=== PATIENT | male | born 1935 | race Caucasian/White ===

== ENCOUNTER 2017-03-29 07:46 | Day surgery (SDC) | payer BC, OTHER ==
[2017-03-28 10:45] VITALS: BMI 19.6
[2017-03-29 08:16] LABS: MCH 31.8 pg (25.7-33.7); MEAN CELL VOLUME 96.3 fl (80-96); MEAN PLT VOLUME 10.5 fl (7.5-11.1); NEUTROPHILS 39.6 % (42.8-82.8); PLATELET COUNT 133 K/MM3 (134-434); RDW 13.8 % (11.9-15.9); WHITE BLOOD COUNT 5.3 K/mm3 (4.0-10.0)
[2017-03-29 08:30] VITALS: TEMP 97.4
[2017-03-29 08:45] LABS: INR 1.08 (0.82-1.09); PROTHROMBIN TIME (PATIENT) 11.9 SEC (9.98-11.88)
[2017-03-29 15:36] VITALS: BP 125/62; PULSE 58
--- NOTE | 2017-03-30 15:41 | PATH ---
Surgical Pathology Report Patient Name: LAUREN PIERCE [facility]. Rec. #: [id number] /Age/Gender: 1935 (Age: 81) / M Account: [id number] Location: RADIOLOGY Taken: 03/29/2017 Received: 03/29/2017 Reported: 03/30/2017 Physicians: Drake Pike M.D. Salena Jorge M.D. Specimen(s) Received LIVER BIOPSY Clinical History 81-year-old male with chronic hepatitis C and large right hepatic lobe mass Final Diagnosis LIVER, US GUIDED CORE BIOPSY: HEPATOCELLULAR CARCINOMA, WELL DIFFERENTIATED (SEE COMMENT). Comment: The tumor is comprised of polygonal cells with round slightly hyperchromatic nuclei and eosinophilic cytoplasm closely resembling hepatocytes, forming cords and gland-like structures focally containing bile, with interspersed fibrotic bands with mixed inflammatory cells. Reticulin stain shows thickened hepatocellular plates. The findings are consistent with well-differentiated hepatocellular carcinoma. The case was discussed with Dr. Pascual on 03/30/17. Electronically Signed Percy Panchal M.D. Gross Description Received in formalin labeled "liver tissue," are 5 dos santos, cylindrical portions of soft tissue ranging from 0.2-1.7 cm in length and averaging 0.1 cm in diameter. The specimens are submitted in toto in one cassette. 03/29/201703/29/2017
== END 2017-03-29 15:36 | disposition home or self-care (01) ==
LOC: JRADIR 07:46
PROVIDERS: ATTEND Internal Medicine Hematology & Oncology
PROC: 0FB03ZX Excision of Liver, Percutaneous Approach, Diagnostic (ICD-10-PCS; principal; 2017-03-29)
DX: C22.0 Liver cell carcinoma (principal); C78.7 Secondary malignant neoplasm of liver and intrahepatic bile duct; B18.2 Chronic viral hepatitis C
CPT/HCPCS: 36415; 76942-TC; 85025; 85610; 87899; 88307-TC; 88313-TC

== ENCOUNTER 2017-08-25 07:40 | Day surgery (SDC) | payer BC, OTHER ==
[2017-08-25] MEDS ORDERED: SODIUM CHLORIDE 250 ML IV ONE (08:00)
[2017-08-25] MEDS ORDERED: NIVOLUMAB 200 MG, NIVOLUMAB 40 MG in SODIUM CHLORIDE 100 ML IVPB ONE (09:00)
[2017-08-25 09:08] LABS: EOS % 3.8 % (0-4.5); HEMATOCRIT 36.8 % (35.4-49); MCH 31.7 pg (25.7-33.7); MCHC 32.5 g/dl (32.0-35.9); MEAN CELL VOLUME 97.7 fl (80-96); MEAN PLT VOLUME 9.3 fl (7.5-11.1); MONO % 11.1 % (3.8-10.2); NEUT % 49.1 % (42.8-82.8); PLATELET COUNT 169 K/MM3 (134-434); RBC 3.77 M/mm3 (4.00-5.60); RDW 15.7 % (11.9-15.9); WHITE BLOOD COUNT 4.6 K/mm3 (4.0-10.0)
[2017-08-25 09:35] LABS: ALBUMIN 3.1 g/dl (3.4-5.0); ANION GAP 5 (8-16); BILIRUBIN,DIRECT 0.5 mg/dL (0.0-0.2); BILIRUBIN,TOTAL 0.9 mg/dL (0.2-1.0); BLOOD UREA NITROGEN 9 mg/dL (7-18); CALCIUM 8.5 mg/dL (8.5-10.1); CHLORIDE 101 mmol/L (98-107); CO2 30 mmol/L (21-32); CREATININE 0.8 mg/dL (0.7-1.3); GLUCOSE,RANDOM 145 mg/dL (74-106); MAGNESIUM 1.6 mg/dL (1.8-2.4); POTASSIUM 4.4 mmol/L (3.5-5.1); SGOT/AST 54 U/L (15-37); SGPT/ALT 26 U/L (12-78); SODIUM 136 mmol/L (136-145)
[2017-08-25 09:42] LABS: ALK PHOS 106 U/L (45-117); TOT PROT 7.6 g/dl (6.4-8.2)
[2017-08-25] MEDS ORDERED: MAGNESIUM SULF 50% (8.12 MEQ/2 ML-1 GM VIAL) ONE (09:48)
[2017-08-25] MEDS ORDERED: MAGNESIUM SULF 50% (8.12 MEQ/2 ML-1 GM VIAL) IVPB ONE (10:00)
[2017-08-25 18:10] VITALS: TEMP 97.6
[2017-08-25 18:12] VITALS: BP 132/68; PULSE 50
== END 2017-08-25 12:15 | disposition home or self-care (01) ==
LOC: JONCCHEMO 07:40 → J7W 09:27 → JONCCHEMO 12:15
PROVIDERS: ATTEND Internal Medicine Hematology & Oncology
DX: Z51.11 Encounter for antineoplastic chemotherapy (principal); C22.0 Liver cell carcinoma; B19.20 Unspecified viral hepatitis C without hepatic coma; E11.9 Type 2 diabetes mellitus without complications; I10 Essential (primary) hypertension; N40.0 Benign prostatic hyperplasia without lower urinary tract symptoms; I50.9 Heart failure, unspecified
CPT/HCPCS: 36415; 80053; 80076; 83735; 84439; 84443; 85025; 96361; 96413; 96417; J9299

== ENCOUNTER 2017-09-08 07:36 | Day surgery (SDC) | payer BC, OTHER ==
[2017-09-08 08:55] LABS: BASO % 0.6 % (0-2.0); EOS % 7.1 % (0-4.5); HEMATOCRIT 35.4 % (35.4-49); LYMPH % 33.6 % (8-40); MCH 33.1 pg (25.7-33.7); MCHC 33.9 g/dl (32.0-35.9); MEAN CELL VOLUME 97.5 fl (80-96); MEAN PLT VOLUME 10.2 fl (7.5-11.1); MONO % 11.7 % (3.8-10.2); PLATELET COUNT 144 K/MM3 (134-434); RBC 3.64 M/mm3 (4.00-5.60); RDW 15.4 % (11.9-15.9); WHITE BLOOD COUNT 4.2 K/mm3 (4.0-10.0)
[2017-09-08] MEDS ORDERED: SODIUM CHLORIDE 250 ML IV ONE (09:00)
[2017-09-08 09:26] LABS: ALBUMIN 3.1 g/dl (3.4-5.0); ALK PHOS 181 U/L (45-117); ANION GAP 6 (8-16); BILIRUBIN,DIRECT 2.1 mg/dL (0.0-0.2); BILIRUBIN,TOTAL 2.4 mg/dL (0.2-1.0); BLOOD UREA NITROGEN 11 mg/dL (7-18); CALCIUM 8.6 mg/dL (8.5-10.1); CHLORIDE 101 mmol/L (98-107); CO2 28 mmol/L (21-32); CREATININE 0.8 mg/dL (0.7-1.3); GLUCOSE,RANDOM 123 mg/dL (74-106); POTASSIUM 4.2 mmol/L (3.5-5.1); SGOT/AST 111 U/L (15-37); SGPT/ALT 34 U/L (12-78); SODIUM 135 mmol/L (136-145); TOT PROT 7.9 g/dl (6.4-8.2)
[2017-09-08 09:48] VITALS: TEMP 97.2
[2017-09-08] MEDS ORDERED: NIVOLUMAB 200 MG, NIVOLUMAB 40 MG in SODIUM CHLORIDE 100 ML IVPB ONE (10:00)
[2017-09-08 11:58] VITALS: BP 156/89; PULSE 72
== END 2017-09-08 11:58 | disposition home or self-care (01) ==
LOC: JONCCHEMO 07:36 → J7W 10:19 → JONCCHEMO 11:58
PROVIDERS: ATTEND Internal Medicine Hematology & Oncology
PROC: 3E03305 Introduction of Other Antineoplastic into Peripheral Vein, Percutaneous Approach (ICD-10-PCS; principal; 2017-09-08)
PROC: 3E0337Z Introduction of Electrolytic and Water Balance Substance into Peripheral Vein, Percutaneous Approach (ICD-10-PCS; 2017-09-08)
DX: Z51.11 Encounter for antineoplastic chemotherapy (principal); C22.0 Liver cell carcinoma
CPT/HCPCS: 36415; 80053; 80076; 85025; 96361; 96413; J9299

== ENCOUNTER 2017-09-22 07:33 | Day surgery (SDC) | payer BC, OTHER ==
[2017-09-22] MEDS ORDERED: SODIUM CHLORIDE 250 ML IV ONE (09:00)
[2017-09-22] MEDS ORDERED: NIVOLUMAB 200 MG, NIVOLUMAB 40 MG in SODIUM CHLORIDE 100 ML IVPB ONE (10:00)
[2017-09-22 10:11] LABS: BASO % 1.5 % (0-2.0); EOS % 2.6 % (0-4.5); HEMATOCRIT 31.5 % (35.4-49); LYMPH % 26.4 % (8-40); MCHC 34.8 g/dl (32.0-35.9); MEAN CELL VOLUME 94.7 fl (80-96); MEAN PLT VOLUME 10.4 fl (7.5-11.1); NEUT % 58.5 % (42.8-82.8); PLATELET COUNT 171 K/MM3 (134-434); RBC 3.33 M/mm3 (4.00-5.60); RDW 18.4 % (11.9-15.9); WHITE BLOOD COUNT 4.3 K/mm3 (4.0-10.0)
[2017-09-22 10:29] LABS: ALBUMIN 2.7 g/dl (3.4-5.0); ALK PHOS 126 U/L (45-117); ANION GAP 8 (8-16); BILIRUBIN,DIRECT 8.2 mg/dL (0.0-0.2); BILIRUBIN,TOTAL 9.7 mg/dL (0.2-1.0); BLOOD UREA NITROGEN 8 mg/dL (7-18); CALCIUM 7.9 mg/dL (8.5-10.1); CHLORIDE 97 mmol/L (98-107); CO2 27 mmol/L (21-32); CREATININE 0.9 mg/dL (0.7-1.3); GLUCOSE,RANDOM 120 mg/dL (74-106); MAGNESIUM 1.7 mg/dL (1.8-2.4); POTASSIUM 3.9 mmol/L (3.5-5.1); SGOT/AST 180 U/L (15-37); SGPT/ALT 43 U/L (12-78); SODIUM 132 mmol/L (136-145); TOT PROT 7.4 g/dl (6.4-8.2); TOT PROT 7.7 g/dl (6.4-8.2)
[2017-09-22] MEDS ORDERED: RANITIDINE HCL 50 MG/2 ML VIAL IVPB ONE (11:30)
[2017-09-22 12:52] LABS: URINE APPEARANCE CLEAR; URINE BLOOD NEGATIVE (NEGATIVE); URINE COLOR AMBER; URINE GLUCOSE (UA) NEGATIVE (NEGATIVE); URINE KETONE NEGATIVE (NEGATIVE); URINE LEUK ESTERASE NEGATIVE (NEGATIVE); URINE NITRITE NEGATIVE (NEGATIVE); URINE UROBILINOGEN 4.0 E.U/dl mg/dL (0.2-1.0)
[2017-09-22 12:54] LABS: URINE PROTEIN 1+ (NEGATIVE)
[2017-09-22 13:28] LABS: URINE HYALINE CAST 23 /lpf; URINE MUCUS MANY
[2017-09-22 14:35] VITALS: BP 126/60; PULSE 56; TEMP 97.3
[2017-09-26 16:27] LABS: ALPHA-1-ANTITRYPSIN 213 mg/dL (90-200)
== END 2017-09-22 12:55 | disposition home or self-care (01) ==
LOC: JONCCHEMO 07:33 → J7W 10:17 → JONCCHEMO 12:55
PROVIDERS: ATTEND Internal Medicine Hematology & Oncology
DX: Z51.11 Encounter for antineoplastic chemotherapy (principal); Z53.8 Procedure and treatment not carried out for other reasons
CPT/HCPCS: 36415; 80053; 80076; 81003; 81015; 82103; 82104; 82140; 83735; 84439; 84443; 85025; 85730; 86301; 87086; 96413

== ENCOUNTER 2017-11-22 10:50 | Inpatient (IN) | payer BC, OTHER ==
[2017-11-22] MEDS ORDERED: SODIUM CHLORIDE 500 ML IV STA (11:31)
[2017-11-22 12:11] LABS: HEMATOCRIT 39.9 % (35.4-49); HEMOGLOBIN 13.3 GM/dL (11.7-16.9); LYMPH % 35.9 % (8-40); MCH 32.4 pg (25.7-33.7); MCHC 33.3 g/dl (32.0-35.9); MEAN CELL VOLUME 97.1 fl (80-96); MONO % 10.3 % (3.8-10.2); NEUT % 51.8 % (42.8-82.8); PLATELET COUNT 147 K/MM3 (134-434); RBC 4.11 M/mm3 (4.00-5.60); WHITE BLOOD COUNT 4.5 K/mm3 (4.0-10.0)
[2017-11-22 12:35] LABS: ALBUMIN 2.7 g/dl (3.4-5.0); ANION GAP 9 (8-16); BILIRUBIN,TOTAL 1.6 mg/dL (0.2-1.0); BLOOD UREA NITROGEN 10 mg/dL (7-18); CALCIUM 8.7 mg/dL (8.5-10.1); CHLORIDE 98 mmol/L (98-107); CO2 26 mmol/L (21-32); CREATININE 0.7 mg/dL (0.7-1.3); GLUCOSE,RANDOM 179 mg/dL (74-106); MAGNESIUM 1.7 mg/dL (1.8-2.4); POTASSIUM 4.1 mmol/L (3.5-5.1); SGOT/AST 74 U/L (15-37); SODIUM 133 mmol/L (136-145); TOT PROT 8.2 g/dl (6.4-8.2)
[2017-11-22 12:39] LABS: ALK PHOS 193 U/L (45-117); SGPT/ALT 26 U/L (12-78)
[2017-11-22] MEDS ORDERED: MAGNESIUM SULF 50% (8.12 MEQ/2 ML-1 GM VIAL) IVPB ONE (12:45)
[2017-11-22] MEDS ORDERED: MAGNESIUM SULF 50% (8.12 MEQ/2 ML-1 GM VIAL) ONE (12:46)
--- NOTE | 2017-11-22 13:17 | PDOC ---
History of Present Illness - General Chief Complaint: Weakness Stated Complaint: WEAKNESS Time Seen by Provider: 11/22/17 11:16 History Source: Patient Exam Limitations: Clinical Condition - History of Present Illness Initial Comments: 11/22/17 12:00 82-year-old male with history of liver CA was sent here from his primary care physician Dr. Jose Bradford for admission secondary to dehydration and weakness. As per daughter patient has had decreased appetite, decreased energy now complaining of left upper quadrant pain for the past few weeks. Daughter denies change in urine output, diarrhea, fever or chills. Patient denies chest pain, nausea back pain, or difficulty breathing. Severity: moderate Associated Symptoms: reports: loss of appetite, malaise, weakness Past History - Travel Traveled outside of the country in the last 30 days: No - Past Medical History Allergies/Adverse Reactions: Allergies Allergy/AdvReac Type Severity Reaction Status Date / Time No Known Allergies Allergy Verified 11/22/17 11:05 Home Medications: Ambulatory Orders Budesonide/Formeterol Fumarate [SYMBICORT 160/4.5mcg -] 1 inh PO BID 02/27/14 Tamsulosin HCl [Flomax -] 0.4 mg PO HS 02/27/14 Albuterol Sulfate Inhaler - [Ventolin HFA Inhaler -] 1 - 2 inh PO QID 03/28/17 Citalopram Hydrobromide [Celexa -] 10 mg PO DAILY 03/28/17 Metoprolol Succinate [Toprol XL -] 12.5 mg PO DAILY 03/28/17 Albuterol Sulfate [Proair Respiclick] 90 mcg IH PRN 03/29/17 Multivitamin [Multiple Vitamins] 1 each PO DAILY 11/22/17 Tiotropium [place] [Spiriva] 2 inh IH DAILY 11/22/17 Atorvastatin Ca [Lipitor] 20 mg PO HS #30 tablet MDD 1 11/25/17 Citalopram Hydrobromide [Celexa -] 10 mg PO DAILY@0800 #20 tablet MDD 1 Docusate Sodium [Colace -] 300 mg PO HS #60 capsule MDD 3 11/25/17 Magnesium Oxide [Mag-Ox -] 400 mg PO BID #10 tablet MDD 2 11/25/17 Metoprolol Succinate [Toprol XL -] 12.5 mg PO DAILY@0800 #30 tab.sr.24h MDD 1 Pantoprazole Sodium [Protonix -] 20 mg PO DAILY@0800 #30 tablet.ec MDD 1 Tamsulosin HCl [Flomax -] 0.4 mg PO DAILY@0800 #30 cap.er.24h MDD 1 11/25/17 Tiotropium [place] [Spiriva] 1 puff IH DAILY #1 cap MDD 1 11/25/17 oxyCODONE HCL [Roxicodone -] 5 mg PO Q6H PRN #20 tablet MDD 4 11/25/17 Anemia: Yes Asthma: Yes Cancer: No Cardiac Disorders: Yes (AK) CVA: No COPD: No CHF: No Dementia: No Diabetes: Yes (IDDM) GI Disorders: No Disorders: Yes (BPH) HTN: Yes Hypercholesterolemia: Yes Liver Disease: Yes (HEP C) Seizures: No Thyroid Disease: No - Surgical History Abdominal Surgery: No Appendectomy: No Cardiac Surgery: Yes (CARDIAC CATH) Cholecystectomy: No Lung Surgery: No Neurologic Surgery: No Orthopedic Surgery: No - Suicide/Smoking/Psychosocial Hx Smoking History: Former smoker Have you smoked in the past 12 months: No If you are a former smoker, when did you quit?: 50 YEARS AGO Information on smoking cessation initiated: No Hx Alcohol Use: No Drug/Substance Use Hx: No Hx Substance Use Treatment: No Patient Lives Alone: No Lives with/in: spouse/SO Review of Systems - Review of Systems Able to Perform ROS?: No Constitutional: Yes: Loss of Appetite, Malaise, Weakness HEENTM: No: Symptoms Reported Respiratory: No: Symptoms reported Cardiac (ROS): No: Symptoms Reported ABD/GI: Yes: Poor Appetite, Poor Fluid Intake : No: Symptoms Reported Musculoskeletal: No: Symptoms Reported Integumentary: No: Symptoms Reported Neurological: Yes: Weakness Hematologic/Lymphatic: No: Symptoms Reported *Physical Exam - Vital Signs Last Vital Signs Temp Pulse Resp BP Pulse Ox 97.5 F L 67 20 140/77 98 11/22/17 11:05 11/22/17 11:12 11/22/17 11:05 11/22/17 11:05 11/22/17 11:12 - Physical Exam General Appearance: Yes: Nourished, Appropriately Dressed. No: Apparent Distress HEENT: positive: SUMMER, Pharynx Normal (dry) Neck: positive: Supple Respiratory/Chest: positive: Decreased Breath Sounds (bilateral base). negative : Respiratory Distress, Accessory Muscle Use Cardiovascular: positive: Regular Rhythm, Regular Rate. negative: Murmur Gastrointestinal/Abdominal: positive: Soft, Tenderness (left periumbilical / left upper quadrant) Extremity: positive: Normal Capillary Refill. negative: Pedal Edema Integumentary: positive: Normal Color, Dry, Warm Neurologic: positive: Normal Mood/Affect, Motor Strength 11/12 ED Treatment Course - LABORATORY CBC & Chemistry Diagram: 11/23/17 06:50 11/24/17 07:25 - ADDITIONAL ORDERS Additional order review: Laboratory Results 11/22/17 11/22/17 11:41 11:41 Sodium 133 L Potassium 4.1 Chloride 98 Carbon Dioxide 26 Anion Gap 9 BUN 10 D Creatinine 0.7 D Creat Clearance w eGFR > 60 Random Glucose 179 H D Lactic Acid 1.7 Calcium 8.7 Magnesium 1.7 L Total Bilirubin 1.6 H D AST 74 H D ALT 26 D Alkaline Phosphatase 193 H D Total Protein 8.2 Albumin 2.7 L 11/22/17 11:41 RBC 4.11 D MCV 97.1 H MCHC 33.3 RDW 14.0 D MPV 10.0 Neutrophils % 51.8 Lymphocytes % 35.9 D Monocytes % 10.3 H Eosinophils % 1.0 Basophils % 1.0 - RADIOLOGY Radiology Studies Ordered: Category Date Time Status ABDOMEN & PELVIS CT WITH CONTR [CT] Stat CT Scan 11/22/17 12:24 Ordered CHEST X-RAY PORTABLE* [RAD] Stat Radiology 11/22/17 11:31 Completed - Medications Given in the ED: ED Medications Discontinued Medications Generic Name Dose Route Start Last Admin Trade Name Freq PRN Reason Stop Dose Admin Sodium Chloride 500 mls @ 500 mls/hr 11/22/17 11:31 11/22/17 12:03 Normal Saline - IV 11/22/17 12:30 500 mls/hr ASDIR STA Administration Magnesium Sulfate 1 gm 11/22/17 12:45 11/22/17 12:51 Magnesium Sulfate IVPB 11/22/17 12:46 1 gm ONCE ONE Administration Medical Decision Making - Medical Decision Making 11/22/17 12:19 Patient with history of liver cancer was sent for admission secondary dehydration and weakness. Patient appears dry with left upper quadrant tenderness to exam. Patient ordered for labs, chest x-ray and abdominal CT. Case discussed with Dr. Selby who accepted patient to service. [facility] be [facility] to [facility]. 11/22/17 13:21 Laboratory Tests 11/22/17 11/22/17 11/22/17 11:41 11:41 11:41 WBC 4.5 Hgb 13.3 D Hct 39.9 D Plt Count 147 Neutrophils % 51.8 Sodium 133 L Potassium 4.1 Chloride 98 Carbon Dioxide 26 Anion Gap 9 BUN 10 D Creatinine 0.7 D Random Glucose 179 H D Lactic Acid 1.7 Calcium 8.7 Magnesium 1.7 L Total Bilirubin 1.6 H D AST 74 H D ALT 26 D Alkaline Phosphatase 193 H D Total Protein 8.2 Albumin 2.7 L *DC/Admit/Observation/Transfer Diagnosis at time of Disposition: Weakness, Poor appetite, Hypomagnesemia - Discharge Dispostion Disposition: HOME HEALTH CARE Condition at time of disposition: Stable Decision to Admit order: Yes - Prescriptions - Referrals - Patient Instructions - Post Discharge Activity
--- NOTE | 2017-11-22 13:35 | HP ---
Admitting History and Physical - Primary Care Physician PCP: Jose Bradford I - Admission History of Present Illness: 82-year-old male with history of liver CA was sent here from his primary care physician Dr. Jose Bradford for admission secondary to dehydration and weakness. As per daughter patient has had decreased appetite, decreased energy now complaining of left upper quadrant pain for the past few weeks. Daughter denies change in urine output, diarrhea, fever or chills. Patient denies chest pain, nausea back pain, or difficulty breathing. Severity: moderate Associated Symptoms: reports: loss of appetite, malaise, weakness got fluids and Magnesium in ER on labs: mag 1.7 History Source: Medical Record - Past Medical History Heme/Onc: Yes: Other (liver cancer) - Smoking History Smoking history: Former smoker Have you smoked in the past 12 months: No If you are a former smoker, when did you quit?: 50 YEARS AGO - Alcohol/Substance Use Hx Alcohol Use: No Home Medications - Allergies Allergies/Adverse Reactions: Allergies Allergy/AdvReac Type Severity Reaction Status Date / Time No Known Allergies Allergy Verified 11/22/17 11:05 - Home Medications Home Medications: Ambulatory Orders Budesonide/Formeterol Fumarate [SYMBICORT 160/4.5mcg -] 1 inh PO BID 02/27/14 Furosemide [Lasix -] 20 mg PO DAILY 02/27/14 Insulin Glargine,Hum.rec.anlog [Lantus Solostar PEN -] 35 units SQ ACDIN Pravastatin Sodium [Pravachol -] 80 mg PO HS 02/27/14 Tamsulosin HCl [Flomax -] 0.4 mg PO HS 02/27/14 Albuterol Sulfate Inhaler - [Ventolin Hfa Inhaler -] 1 - 2 inh PO QID 03/28/17 Citalopram Hydrobromide [Celexa -] 10 mg PO DAILY 03/28/17 Magnesium 400 mg PO DAILY 03/28/17 Metoprolol Succinate [Toprol Xl -] 12.5 mg PO DAILY 03/28/17 Albuterol Sulfate [Proair Respiclick] 90 mcg IH PRN 03/29/17 Finasteride [Proscar] 5 mg PO DAILY 03/29/17 Sacubitril/Valsartan [Entresto 24 mg-26 mg Tablet] 1 each PO DAILY 03/29/17 Aspirin 81 mg PO DAILY 11/22/17 Cholestyramine (with Sugar) [Cholestyramine Packet] 4 gm PO DAILY 11/22/17 Dexlansoprazole [Dexilant] 60 mg PO DAILY 11/22/17 Megestrol Acetate [Megace Es] 625 mg PO DAILY 11/22/17 Multivitamin [Multiple Vitamins] 1 each PO DAILY 11/22/17 Oxycodone HCl/Acetaminophen [Percocet 5-325 mg Tablet] 1 tab PO Q6H 11/22/17 Sitagliptin Phos/Metformin HCl [Janumet 50-500 mg Tablet] 1 each PO BID Tiotropium [place] [Spiriva] 2 inh IH DAILY 11/22/17 Tramadol HCl 50 mg PO DAILY 11/22/17 Physical Examination Vital Signs: Vital Signs Temperature 97.5 F L 11/22/17 11:05 Pulse Rate 71 11/22/17 13:20 Respiratory Rate 20 11/22/17 13:20 Blood Pressure 158/78 11/22/17 13:20 O2 Sat by Pulse Oximetry (%) 99 11/22/17 13:20 Constitutional: Yes: Calm, Thin Cardiovascular: Yes: Regular Rate and Rhythm, S1, S2 Respiratory: Yes: CTA Bilaterally Gastrointestinal: Yes: Normal Bowel Sounds, Soft Edema: No Labs: CBC, BMP 11/22/17 11:41 11/22/17 11:41 Imaging - Results Cat Scan: Pending Problem List - Problems (1) Hypomagnesemia Assessment/Plan: repleted recheck Code(s): E83.42 - HYPOMAGNESEMIA (2) Weakness Assessment/Plan: PT eval oncology eval ct scan ua and urine cx dietary eval- calorie count Code(s): R53.1 - WEAKNESS (3) Liver cancer Assessment/Plan: ct scan pending oncology eval palliative consult for advance directives dvt ppx got chemo on * pain control stool softners Code(s): C22.9 - MALIG NEOPLASM OF LIVER, NOT SPECIFIED PRIMARY OR SEC (4) Diabetes Assessment/Plan: bgm hgba1c slidiing scale Code(s): E11.9 - TYPE 2 DIABETES MELLITUS WITHOUT COMPLICATIONS Qualifiers: Diabetes mellitus type: type 2
--- NOTE | 2017-11-22 13:42 | PDOC ---
*Physical Exam - Vital Signs Last Vital Signs Temp Pulse Resp BP Pulse Ox 97.5 F L 71 20 158/78 99 11/22/17 11:05 11/22/17 13:20 11/22/17 13:20 11/22/17 13:20 11/22/17 13:20 ED Treatment Course - LABORATORY CBC & Chemistry Diagram: 11/22/17 11:41 11/22/17 11:41 - ADDITIONAL ORDERS Additional order review: Laboratory Results 11/22/17 11/22/17 11:41 11:41 Sodium 133 L Potassium 4.1 Chloride 98 Carbon Dioxide 26 Anion Gap 9 BUN 10 D Creatinine 0.7 D Creat Clearance w eGFR > 60 Random Glucose 179 H D Lactic Acid 1.7 Calcium 8.7 Magnesium 1.7 L Total Bilirubin 1.6 H D AST 74 H D ALT 26 D Alkaline Phosphatase 193 H D Total Protein 8.2 Albumin 2.7 L 11/22/17 11:41 RBC 4.11 D MCV 97.1 H MCHC 33.3 RDW 14.0 D MPV 10.0 Neutrophils % 51.8 Lymphocytes % 35.9 D Monocytes % 10.3 H Eosinophils % 1.0 Basophils % 1.0 - Medications Given in the ED: ED Medications Discontinued Medications Generic Name Dose Route Start Last Admin Trade Name Freq PRN Reason Stop Dose Admin Sodium Chloride 500 mls @ 500 mls/hr 11/22/17 11:31 11/22/17 12:03 Normal Saline - IV 11/22/17 12:30 500 mls/hr ASDIR STA Administration Magnesium Sulfate 1 gm 11/22/17 12:45 11/22/17 12:51 Magnesium Sulfate IVPB 11/22/17 12:46 1 gm ONCE ONE Administration Medical Decision Making - Medical Decision Making 11/22/17 13:41 Patient seen and evaluated with the nurse practitioner. I agree with the overall evaluation, assessment, and management with the following summary of visit: 82-year-old male with known liver CA sent for admission secondary to increasing weakness. labs as noted, Hgb stable but lft elevated Admitted to Dr. Cooper. *DC/Admit/Observation/Transfer Diagnosis at time of Disposition: Weakness, Poor appetite, Hypomagnesemia - Referrals Referrals: Jose Bradford MD [Primary Care Provider] - - Patient Instructions - Post Discharge Activity
[2017-11-22 13:56] LABS: URINE APPEARANCE CLEAR; URINE BILIRUBIN NEGATIVE (<2.0 mg/dL); URINE COLOR DKYELLOW; URINE GLUCOSE (UA) NEGATIVE (NEGATIVE); URINE KETONE NEGATIVE (NEGATIVE); URINE LEUK ESTERASE NEGATIVE (NEGATIVE); URINE NITRITE NEGATIVE (NEGATIVE); URINE PROTEIN NEGATIVE (NEGATIVE); URINE UROBILINOGEN 4.0 E.U/dl mg/dL (0.2-1.0)
[2017-11-22 15:57] VITALS: BMI 19.9
[2017-11-22] MEDS: ALBUTEROL SO4 0.083% IH SOL 2.5 MG/3 ML VIAL.NEB. NEB SCH ×2 (15:59→19:58)
[2017-11-22] MEDS: INSULIN SLIDING SCALE (NOVOLOG) 1 VIAL SQ SCH ×2 (15:59→21:47)
--- NOTE | 2017-11-22 17:09 | EKG ---
Test Reason : Blood Pressure : / mmHG Vent. Rate : 067 BPM Atrial Rate : 067 BPM P-R Int : 182 ms QRS Dur : 128 ms QT Int : 438 ms P-R-T Axes : 057 -74 030 degrees QTc Int : 462 ms SINUS RHYTHM WITH MARKED SINUS ARRHYTHMIA RIGHT BUNDLE BRANCH BLOCK LEFT ANTERIOR FASCICULAR BLOCK BIFASCICULAR BLOCK CANNOT RULE OUT ANTERIOR INFARCT , AGE UNDETERMINED ABNORMAL ECG NO PREVIOUS ECGS AVAILABLE Confirmed by MD СВЕТЛАНА, ZACK ([id number]) on 11/22/2017 5:08:35 PM Referred By: Confirmed By:ZACK SOTOMAYOR MD
[2017-11-22] MEDS ORDERED: INSULIN (NOVOLOG) ASPART 100 UNITS/ML 10ML VIAL ONE (21:29)
[2017-11-22] MEDS: DOCUSATE SODIUM 100 MG CAPSULE (FP) PO SCH (21:48)
[2017-11-22] MEDS: HEPARIN NA (PORCINE) 5,000 UNITS/ML 1ML VIAL SQ SCH (21:48)
[2017-11-22] MEDS: ATORVASTATIN CA 20 MG TABLET (FP) PO SCH (21:48)
[2017-11-23] MEDS ORDERED: DEXTROSE 5%-0.45% SALINE 1,000 ML IV SCH (01:15)
[2017-11-23] MEDS: INSULIN SLIDING SCALE (NOVOLOG) 1 VIAL SQ SCH ×3 (06:28→19:51)
[2017-11-23 07:05] LABS: BASO % 0.8 % (0-2.0); EOS % 1.3 % (0-4.5); HEMATOCRIT 39.2 % (35.4-49); HEMOGLOBIN 13.5 GM/dL (11.7-16.9); LYMPH % 37.4 % (8-40); MCH 33.4 pg (25.7-33.7); MCHC 34.3 g/dl (32.0-35.9); MEAN CELL VOLUME 97.3 fl (80-96); MEAN PLT VOLUME 10.1 fl (7.5-11.1); MONO % 10.5 % (3.8-10.2); PLATELET COUNT 133 K/MM3 (134-434); RBC 4.03 M/mm3 (4.00-5.60); WHITE BLOOD COUNT 4.4 K/mm3 (4.0-10.0)
[2017-11-23 07:17] LABS: INR 1.17 (0.82-1.09); PROTHROMBIN TIME (PATIENT) 13.2 SEC (9.7-13.0)
[2017-11-23 07:29] LABS: ALBUMIN 2.4 g/dl (3.4-5.0); ANION GAP 11 (8-16); BLOOD UREA NITROGEN 5 mg/dL (7-18); CALCIUM 8.2 mg/dL (8.5-10.1); CHLORIDE 99 mmol/L (98-107); CO2 22 mmol/L (21-32); GLUCOSE,RANDOM 174 mg/dL (74-106); MAGNESIUM 1.6 mg/dL (1.8-2.4); POTASSIUM 4.2 mmol/L (3.5-5.1); SODIUM 132 mmol/L (136-145)
[2017-11-23 07:34] LABS: ALK PHOS 175 U/L (45-117); BILIRUBIN,TOTAL 1.9 mg/dL (0.2-1.0); CREATININE 0.7 mg/dL (0.7-1.3); PHOSPHOROUS 2.8 mg/dL (2.5-4.9); SGOT/AST 71 U/L (15-37); SGPT/ALT 24 U/L (12-78); TOT PROT 7.6 g/dl (6.4-8.2)
[2017-11-23] MEDS: PANTOPRAZOLE 20 MG TABLET (FP) PO SCH (08:53)
[2017-11-23] MEDS: TAMSULOSIN HCL 0.4 MG CAP.ER.24H (FP) PO SCH (08:53)
[2017-11-23] MEDS: CITALOPRAM HYDROBROMIDE 10 MG TABLET (FP) PO SCH (08:53)
[2017-11-23] MEDS: ALBUTEROL SO4 0.083% IH SOL 2.5 MG/3 ML VIAL.NEB. NEB SCH ×4 (09:00→21:25)
[2017-11-23] MEDS: metoPROLOL SUCCINATE 25 MG TAB.SR.24H (FP) PO SCH (09:08)
--- NOTE | 2017-11-23 09:30 | CONSULT ---
Consult Consult Specialty:: Oncology - History of Present Illness History of Present Illness: 82-year-old male with history of liver CA was sent here from his primary care physician Dr. Jose Bradford for admission secondary to dehydration and weakness. As per daughter patient has had decreased appetite, decreased energy now complaining of left upper quadrant pain for the past few weeks. Daughter denies change in urine output, diarrhea, fever or chills. Patient denies chest pain, nausea back pain, or difficulty breathing. Was on chemo until--09/2017. was on sorafenib-POD--nivolumab--LFts bump--performance status declined-- stopped rx pt seen and examined. d/w daughter and also . - History Source History Provided By: Family Member - Alcohol/Substance Use Hx Alcohol Use: No - Smoking History Smoking history: Former smoker Have you smoked in the past 12 months: No If you are a former smoker, when did you quit?: 20 YEARS AGO Home Medications - Allergies Allergies/Adverse Reactions: Allergies Allergy/AdvReac Type Severity Reaction Status Date / Time No Known Allergies Allergy Verified 11/22/17 11:05 - Home Medications Home Medications: Ambulatory Orders Budesonide/Formeterol Fumarate [SYMBICORT 160/4.5mcg -] 1 inh PO BID 02/27/14 Furosemide [Lasix -] 20 mg PO DAILY 02/27/14 Insulin Glargine,Hum.rec.anlog [Lantus Solostar PEN -] 35 units SQ ACDIN Pravastatin Sodium [Pravachol -] 80 mg PO HS 02/27/14 Tamsulosin HCl [Flomax -] 0.4 mg PO HS 02/27/14 Albuterol Sulfate Inhaler - [Ventolin Hfa Inhaler -] 1 - 2 inh PO QID 03/28/17 Citalopram Hydrobromide [Celexa -] 10 mg PO DAILY 03/28/17 Magnesium 400 mg PO DAILY 03/28/17 Metoprolol Succinate [Toprol Xl -] 12.5 mg PO DAILY 03/28/17 Albuterol Sulfate [Proair Respiclick] 90 mcg IH PRN 03/29/17 Finasteride [Proscar] 5 mg PO DAILY 03/29/17 Sacubitril/Valsartan [Entresto 24 mg-26 mg Tablet] 1 each PO DAILY 03/29/17 Aspirin 81 mg PO DAILY 11/22/17 Cholestyramine (with Sugar) [Cholestyramine Packet] 4 gm PO DAILY 11/22/17 Dexlansoprazole [Dexilant] 60 mg PO DAILY 11/22/17 Megestrol Acetate [Megace Es] 625 mg PO DAILY 11/22/17 Multivitamin [Multiple Vitamins] 1 each PO DAILY 11/22/17 Oxycodone HCl/Acetaminophen [Percocet 5-325 mg Tablet] 1 tab PO Q6H 11/22/17 Sitagliptin Phos/Metformin HCl [Janumet 50-500 mg Tablet] 1 each PO BID Tiotropium [place] [Spiriva] 2 inh IH DAILY 11/22/17 Tramadol HCl 50 mg PO DAILY 11/22/17 Physical Exam Vital Signs: Vital Signs Temperature 98.2 F 11/23/17 06:00 Pulse Rate 93 H 11/23/17 08:59 Respiratory Rate 20 11/23/17 08:59 Blood Pressure 134/76 11/23/17 08:59 O2 Sat by Pulse Oximetry (%) 96 11/22/17 21:00 Constitutional: Yes: Cachectic, Thin HENT: Yes: Atraumatic, Normocephalic Neck: Yes: Supple, Trachea Midline Cardiovascular: Yes: Regular Rate and Rhythm Respiratory: Yes: Regular, CTA Bilaterally Gastrointestinal: Yes: Normal Bowel Sounds, Soft Edema: No Labs: CBC, BMP 11/23/17 06:50 11/23/17 06:50 Assessment/Plan Advanced HCC with worsening performance status not a candidate for further rx. hospice care palliative care consult laurel oneil
[2017-11-23 10:03] LABS: CHOLESTEROL 101 mg/dL (50-200); HDL CHOLESTEROL 29 mg/dL (40-60); TRIGLYCERIDES 89 mg/dL (35-160)
[2017-11-23] MEDS ORDERED: PT OWN MED DRAWER 7, Y5N ONE ×2 (10:08→13:32)
[2017-11-23] MEDS: HEPARIN NA (PORCINE) 5,000 UNITS/ML 1ML VIAL SQ SCH ×2 (10:12→21:21)
--- NOTE | 2017-11-23 12:41 | PN ---
Progress Note, Physician Chief Complaint: weakness History of Present Illness: NAD, in bed, daughter at bedside complaining of weakness in BLLE past [address] by chance finding of Lumbar compression fracture, osteoporosis History of Liver Ca- being followed by oncology - Current Medication List Current Medications: Active Medications Albuterol Sulfate (Ventolin 0.083% Nebulizer Soln -) 1 amp NEB RQID [facility] Last Admin: 11/23/17 09:00 Dose: 1 amp Atorvastatin Calcium (Lipitor -) 20 mg PO [facility] Last Admin: 11/22/17 21:48 Dose: 20 mg Citalopram Hydrobromide (Celexa -) 10 mg PO DAILY@0800 [facility] Last Admin: 11/23/17 08:53 Dose: 10 mg Docusate Sodium (Colace -) 300 mg PO [facility] Last Admin: 11/22/17 21:48 Dose: 300 mg Heparin Sodium (Porcine) (Heparin -) 5,000 unit SQ BID [facility] Last Admin: 11/23/17 10:12 Dose: 5,000 unit Dextrose/Sodium Chloride (D5-1/2ns -) 1,000 mls @ 30 mls/hr IV ASDIR [facility] Last Admin: 11/23/17 01:12 Dose: 30 mls/hr Insulin Aspart (Novolog Vial Sliding Scale -) 1 vial SQ ACHS [facility] PRN Reason: Protocol Last Admin: 11/23/17 12:08 Dose: 8 units Metoprolol Succinate (Toprol Xl -) 12.5 mg PO DAILY@0800 [facility] Last Admin: 11/23/17 09:08 Dose: 12.5 mg Oxycodone HCl (Roxicodone -) 5 mg PO Q6H PRN PRN Reason: PAIN LEVEL 6-10 Pantoprazole Sodium (Protonix -) 20 mg PO DAILY@0800 [facility] Last Admin: 11/23/17 08:53 Dose: 20 mg Tamsulosin HCl (Flomax -) 0.4 mg PO DAILY@0800 [facility] Last Admin: 11/23/17 08:53 Dose: 0.4 mg Tiotropium [place] (Spiriva -) 1 puff IH DAILY [facility] - Objective Vital Signs: Vital Signs Temperature 98 F 11/23/17 09:48 Pulse Rate 93 H 11/23/17 08:59 Respiratory Rate 20 11/23/17 08:59 Blood Pressure 134/76 11/23/17 08:59 O2 Sat by Pulse Oximetry (%) 96 11/22/17 21:00 Constitutional: Yes: No Distress, Calm, Thin Cardiovascular: Yes: Regular Rate and Rhythm Respiratory: Yes: Regular Musculoskeletal: Yes: Muscle Weakness (BLLE), Other Edema: No Peripheral Pulses WNL: Yes Neurological: Yes: Alert, Oriented Psychiatric: Yes: Alert, Oriented Labs: CBC, BMP 11/23/17 06:50 11/23/17 06:50 INR, PTT INR 1.17 (0.82-1.09) H 11/23/17 06:50 Problem List - Problems (1) Compression fracture of L3 lumbar vertebra Assessment/Plan: By chance finding -MRI lumbar spine -Neurosurgery consult Code(s): S32.030A - WEDGE COMPRESSION FRACTURE OF THIRD LUMBAR VERTEBRA, INIT (2) Diabetes Assessment/Plan: -A1c 5.8% -D/C BGM,diabetic diet and insulin coverage Code(s): E11.9 - TYPE 2 DIABETES MELLITUS WITHOUT COMPLICATIONS Qualifiers: Diabetes mellitus type: type 2 (3) Hypomagnesemia Assessment/Plan: -received IV magnesium -MagOx 400 mg po BID Code(s): E83.42 - HYPOMAGNESEMIA (4) Liver cancer Assessment/Plan: -Oncology consult appreciated Code(s): C22.9 - MALIG NEOPLASM OF LIVER, NOT SPECIFIED PRIMARY OR SEC (5) Weakness Assessment/Plan: 2/2 to compression fracture -NS evaluation -Physical therapy Code(s): R53.1 - WEAKNESS (6) Hyponatremia Assessment/Plan: -Nephrology consult -monitor trend Code(s): E87.1 - HYPO-OSMOLALITY AND HYPONATREMIA Assessment/Plan see problem list
[2017-11-23] MEDS: TIOTROPIUM BROMIDE 18 MCG CAPSULES IH SCH ×2 (13:26→13:31)
--- NOTE | 2017-11-23 13:49 | PN ---
Progress Note (short form) - Note Progress Note: Admitting MD note appreciated. Daughter at bedside who explained to me that he has liver CA. Sent in by his PCP Dr. Maik Ruvalcaba secondary to dehydration and weakness. A CT scan was performed and identified L3 compression fracture (subacute). Daughter at bedside tells me that he fell last week at home. Never sought medical attention. Uses wheelchair to get around (primarily). Secondary, cane and human assist under each arm. Noticed in the past few days that his legs have "given out". Very unstable when he walks. PE: LE bilat: + DP/PT bilat. warm. moves toes without difficulty. Good sensation from hips to toes. Unable to lift legs up off mattress let alone resistance. Lumbar pain elicited (R>L) when he was able to elevate the RLE a little bit. Problem List - Problems (1) Compression fracture of L3 lumbar vertebra Assessment/Plan: 1. Because this was identified on CT scan, the best imaging modality would be a MRI LUMBAR w/o contrast (ordered) --> once results in we can definitively decide if he is an operative vs. non- opertive management 2. LSO brace ordered from supply 3. Pain management prn 4. Neurosurgery will continue to follow 5. Above discussed with Dr. Kirkland and agrees Code(s): S32.030A - WEDGE COMPRESSION FRACTURE OF THIRD LUMBAR VERTEBRA, INIT
[2017-11-23] MEDS ORDERED: INSULIN (NOVOLOG) ASPART 100 UNITS/ML 10ML VIAL ONE ×2 (19:03→19:52)
[2017-11-23] MEDS: DOCUSATE SODIUM 100 MG CAPSULE (FP) PO SCH (21:20)
[2017-11-23] MEDS: ATORVASTATIN CA 20 MG TABLET (FP) PO SCH (21:20)
[2017-11-23] MEDS: oxyCODONE HCL 5 MG TABLET PO PRN (21:20)
[2017-11-23] MEDS: MAGNESIUM OXIDE 400 MG TABLET (FP) PO SCH (21:20)
[2017-11-24] MEDS: TAMSULOSIN HCL 0.4 MG CAP.ER.24H (FP) PO SCH (07:52)
[2017-11-24] MEDS: metoPROLOL SUCCINATE 25 MG TAB.SR.24H (FP) PO SCH (07:52)
[2017-11-24] MEDS: CITALOPRAM HYDROBROMIDE 10 MG TABLET (FP) PO SCH (07:53)
[2017-11-24] MEDS: oxyCODONE HCL 5 MG TABLET PO PRN (07:53)
[2017-11-24] MEDS: PANTOPRAZOLE 20 MG TABLET (FP) PO SCH (07:53)
[2017-11-24] MEDS: ALBUTEROL SO4 0.083% IH SOL 2.5 MG/3 ML VIAL.NEB. NEB SCH ×4 (08:00→20:50)
[2017-11-24 08:37] LABS: ALBUMIN 2.3 g/dl (3.4-5.0); ALK PHOS 153 U/L (45-117); ANION GAP 7 (8-16); BILIRUBIN,TOTAL 1.9 mg/dL (0.2-1.0); BLOOD UREA NITROGEN 6 mg/dL (7-18); CALCIUM 8.2 mg/dL (8.5-10.1); CHLORIDE 100 mmol/L (98-107); CO2 26 mmol/L (21-32); CREATININE 0.6 mg/dL (0.7-1.3); GLUCOSE,RANDOM 173 mg/dL (74-106); SGOT/AST 60 U/L (15-37); SGPT/ALT 22 U/L (12-78); SODIUM 133 mmol/L (136-145); TOT PROT 6.9 g/dl (6.4-8.2)
[2017-11-24] MEDS ORDERED: PT OWN MED DRAWER 7, Y5N ONE ×2 (11:09→11:21)
[2017-11-24] MEDS: HEPARIN NA (PORCINE) 5,000 UNITS/ML 1ML VIAL SQ SCH ×2 (11:11→22:05)
[2017-11-24] MEDS: MAGNESIUM OXIDE 400 MG TABLET (FP) PO SCH ×2 (11:11→22:05)
[2017-11-24] MEDS: TIOTROPIUM BROMIDE 18 MCG CAPSULES IH SCH (11:11)
[2017-11-24 12:20] LABS: OSMOLALITY,SERUM 274 mosm/kg (278-305)
--- NOTE | 2017-11-24 12:43 | CONSULT ---
Consult Consult Specialty:: Renal Reason for Consultation:: Hyponatremia - History of Present Illness History of Present Illness: Briefly, 82 yo M h/o liver CA s/p chemo x 2 in September sent by his PMD to the hospital due to weakness. Per family at bedside, pt could not tolerate chemotherapy in September and stopped the therapy and been feeling weak and having decreased PO intake since then. He also developed intermittent jaundice and abd pain. Denies chest pain, shortness of breath, n/v, fever and chills. - History Source History Provided By: Family Member Limitations to Obtaining History: No Limitations - Past Medical History Gastrointestinal: Yes: Other (Liver CA) - Alcohol/Substance Use Hx Alcohol Use: No - Smoking History Smoking history: Former smoker Have you smoked in the past 12 months: No If you are a former smoker, when did you quit?: 20 YEARS AGO Home Medications - Allergies Allergies/Adverse Reactions: Allergies Allergy/AdvReac Type Severity Reaction Status Date / Time No Known Allergies Allergy Verified 11/22/17 11:05 - Home Medications Home Medications: Ambulatory Orders Budesonide/Formeterol Fumarate [SYMBICORT 160/4.5mcg -] 1 inh PO BID 02/27/14 Furosemide [Lasix -] 20 mg PO DAILY 02/27/14 Insulin Glargine,Hum.rec.anlog [Lantus Solostar PEN -] 35 units SQ ACDIN Pravastatin Sodium [Pravachol -] 80 mg PO HS 02/27/14 Tamsulosin HCl [Flomax -] 0.4 mg PO HS 02/27/14 Albuterol Sulfate Inhaler - [Ventolin Hfa Inhaler -] 1 - 2 inh PO QID 03/28/17 Citalopram Hydrobromide [Celexa -] 10 mg PO DAILY 03/28/17 Magnesium 400 mg PO DAILY 03/28/17 Metoprolol Succinate [Toprol Xl -] 12.5 mg PO DAILY 03/28/17 Albuterol Sulfate [Proair Respiclick] 90 mcg IH PRN 03/29/17 Finasteride [Proscar] 5 mg PO DAILY 03/29/17 Sacubitril/Valsartan [Entresto 24 mg-26 mg Tablet] 1 each PO DAILY 03/29/17 Aspirin 81 mg PO DAILY 11/22/17 Cholestyramine (with Sugar) [Cholestyramine Packet] 4 gm PO DAILY 11/22/17 Dexlansoprazole [Dexilant] 60 mg PO DAILY 11/22/17 Megestrol Acetate [Megace Es] 625 mg PO DAILY 11/22/17 Multivitamin [Multiple Vitamins] 1 each PO DAILY 11/22/17 Oxycodone HCl/Acetaminophen [Percocet 5-325 mg Tablet] 1 tab PO Q6H 11/22/17 Sitagliptin Phos/Metformin HCl [Janumet 50-500 mg Tablet] 1 each PO BID Tiotropium [place] [Spiriva] 2 inh IH DAILY 11/22/17 Tramadol HCl 50 mg PO DAILY 11/22/17 Review of Systems - Review of Systems Constitutional: reports: Loss of Appetite, Malaise, Unintentional Wgt. Loss, Weakness HENT: reports: No Symptoms Cardiovascular: reports: No Symptoms Respiratory: reports: No Symptoms Gastrointestinal: reports: Abdominal Pain, Bloating Genitourinary: reports: No Symptoms Musculoskeletal: reports: Back Pain Physical Exam Vital Signs: Vital Signs Temperature 98.3 F 11/24/17 08:00 Pulse Rate 76 11/24/17 08:00 Respiratory Rate 19 11/24/17 09:00 Blood Pressure 130/65 11/24/17 08:00 O2 Sat by Pulse Oximetry (%) 96 11/24/17 09:00 Constitutional: Yes: Calm, Cachectic Eyes: Yes: Other (jaundice) HENT: Yes: Thrush Cardiovascular: Yes: Regular Rate and Rhythm, S1, S2 Respiratory: Yes: Diminished Gastrointestinal: Yes: Normal Bowel Sounds, Distention. No: Tenderness Labs: CBC, BMP 11/23/17 06:50 11/24/17 07:25 Imaging - Results Cat Scan: Report Reviewed MRI: Report Reviewed Assessment/Plan 82 yo M h/o liver CA admitted to the hospital due to weakness. Compression fracture L3, subacute Liver CA s/p chemo DM Weakness Failure to thrive Hyponatremia HUMA - Electrolyte disturbance 2/2 failure to thrive, Corrected Na+ 134, Low BUN and Cr 2/2 poor PO intake - Nutrition support - Palliative and hospice care Anurag Walters PGY2 Pager: [phone] Visit type - Emergency Visit Emergency Visit: No - New Patient This patient is new to me today: Yes Date on this admission: 11/24/17 - Critical Care Critical Care patient: No
--- NOTE | 2017-11-24 14:51 | PN ---
Progress Note, Physician Chief Complaint: patient seen in bed MRI noted acute compression fracture spoke to and daughter in detail with interpretor and with palliative team , decision made for home hospice DNR/DNI comfort care at home they are aware of fact no further treatment is possible - Current Medication List Current Medications: Active Medications Albuterol Sulfate (Ventolin 0.083% Nebulizer Soln -) 1 amp NEB RQID [facility] Last Admin: 11/24/17 11:36 Dose: 1 amp Atorvastatin Calcium (Lipitor -) 20 mg PO [facility] Last Admin: 11/23/17 21:20 Dose: 20 mg Citalopram Hydrobromide (Celexa -) 10 mg PO DAILY@0800 [facility] Last Admin: 11/24/17 07:53 Dose: 10 mg Docusate Sodium (Colace -) 300 mg PO [facility] Last Admin: 11/23/17 21:20 Dose: 300 mg Heparin Sodium (Porcine) (Heparin -) 5,000 unit SQ BID [facility] Last Admin: 11/24/17 11:11 Dose: 5,000 unit Magnesium Oxide (Mag-Ox -) 400 mg PO BID [facility] Last Admin: 11/24/17 11:11 Dose: 400 mg Metoprolol Succinate (Toprol Xl -) 12.5 mg PO DAILY@0800 [facility] Last Admin: 11/24/17 07:52 Dose: 12.5 mg Oxycodone HCl (Roxicodone -) 5 mg PO Q6H PRN PRN Reason: PAIN LEVEL 6-10 Last Admin: 11/24/17 07:53 Dose: 5 mg Pantoprazole Sodium (Protonix -) 20 mg PO DAILY@0800 [facility] Last Admin: 11/24/17 07:53 Dose: 20 mg Tamsulosin HCl (Flomax -) 0.4 mg PO DAILY@0800 [facility] Last Admin: 11/24/17 07:52 Dose: 0.4 mg Tiotropium [place] (Spiriva -) 1 puff IH DAILY [facility] Last Admin: 11/24/17 11:11 Dose: 1 puff - Objective Vital Signs: Vital Signs Temperature 98.3 F 11/24/17 08:00 Pulse Rate 76 11/24/17 08:00 Respiratory Rate 19 11/24/17 09:00 Blood Pressure 130/65 11/24/17 08:00 O2 Sat by Pulse Oximetry (%) 96 11/24/17 09:00 Constitutional: Yes: Calm Cardiovascular: Yes: Regular Rate and Rhythm, S1, S2 Respiratory: Yes: Diminished Gastrointestinal: Yes: Soft Edema: No Neurological: Yes: Alert (oriented to name) Labs: CBC, BMP 11/23/17 06:50 11/24/17 07:25 INR, PTT INR 1.17 (0.82-1.09) H 11/23/17 06:50 Problem List - Problems (1) Hypomagnesemia Assessment/Plan: on magoxidie Code(s): E83.42 - HYPOMAGNESEMIA (2) Weakness Assessment/Plan: MOLSt form done comfortcare/ home hospice do not want calvary Code(s): R53.1 - WEAKNESS (3) Liver cancer Assessment/Plan: not a candidate for further treatment Code(s): C22.9 - MALIG NEOPLASM OF LIVER, NOT SPECIFIED PRIMARY OR SEC (4) Diabetes Assessment/Plan: bgm hgba1c 5.8 slidiing scale Code(s): E11.9 - TYPE 2 DIABETES MELLITUS WITHOUT COMPLICATIONS Qualifiers: Diabetes mellitus type: type 2 Assessment/Plan plan home hospice tmw compression fracture noted back brace pain control JACKY on board
--- NOTE | 2017-11-24 14:57 | DS ---
Physical Examination Vital Signs: Vital Signs Temperature 98.3 F 11/24/17 08:00 Pulse Rate 76 11/24/17 08:00 Respiratory Rate 19 11/24/17 09:00 Blood Pressure 130/65 11/24/17 08:00 O2 Sat by Pulse Oximetry (%) 96 11/24/17 09:00 Constitutional: Yes: Calm Cardiovascular: Yes: Regular Rate and Rhythm, S1, S2 Respiratory: Yes: CTA Bilaterally Gastrointestinal: Yes: Normal Bowel Sounds, Soft Edema: No Labs: CBC, BMP 11/23/17 06:50 11/24/17 07:25 Discharge Summary Reason For Visit: WEAKNESS Current Active Problems Compression fracture of L3 lumbar vertebra (Acute) Diabetes (Acute) Hypomagnesemia (Acute) Hyponatremia (Acute) Liver cancer (Acute) Poor appetite (Acute) Weakness (Acute) Other Procedures: CT scan shows increased hepatic lesion and L3 compression fracutre. MRI LS spine shows acute compression of L3 Hospital Course: - Primary Care Physician PCP: Jose Bradford I - Admission History of Present Illness: 82-year-old male with history of liver CA was sent here from his primary care physician Dr. Jose Bradford for admission secondary to dehydration and weakness. As per daughter patient has had decreased appetite, decreased energy now complaining of left upper quadrant pain for the past few weeks. Daughter denies change in urine output, diarrhea, fever or chills. Patient denies chest pain, nausea back pain, or difficulty breathing. Severity: moderate Associated Symptoms: reports: loss of appetite, malaise, weakness got fluids and Magnesium in ER on labs: mag 1.7 History Source: Medical Record - Past Medical History Heme/Onc: Yes: Other (liver cancer) - Smoking History Smoking history: Former smoker Have you smoked in the past 12 months: No If you are a former smoker, when did you quit?: 49 YEARsw patient got chemo in september then worsening of disease and LFT ,not a candidate for further treatment made DNR/DNI and to go home with hospice - Instructions Referrals: Jose Bradford MD [Primary Care Provider] - - Home Medications Comprehensive Discharge Medication List: Ambulatory Orders Budesonide/Formeterol Fumarate [SYMBICORT 160/4.5mcg -] 1 inh PO BID 02/27/14 Furosemide [Lasix -] 20 mg PO DAILY 02/27/14 Insulin Glargine,Hum.rec.anlog [Lantus Solostar PEN -] 35 units SQ ACDIN Pravastatin Sodium [Pravachol -] 80 mg PO HS 02/27/14 Tamsulosin HCl [Flomax -] 0.4 mg PO HS 02/27/14 Albuterol Sulfate Inhaler - [Ventolin Hfa Inhaler -] 1 - 2 inh PO QID 03/28/17 Citalopram Hydrobromide [Celexa -] 10 mg PO DAILY 03/28/17 Magnesium 400 mg PO DAILY 03/28/17 Metoprolol Succinate [Toprol Xl -] 12.5 mg PO DAILY 03/28/17 Albuterol Sulfate [Proair Respiclick] 90 mcg IH PRN 03/29/17 Finasteride [Proscar] 5 mg PO DAILY 03/29/17 Sacubitril/Valsartan [Entresto 24 mg-26 mg Tablet] 1 each PO DAILY 03/29/17 Aspirin 81 mg PO DAILY 11/22/17 Cholestyramine (with Sugar) [Cholestyramine Packet] 4 gm PO DAILY 11/22/17 Dexlansoprazole [Dexilant] 60 mg PO DAILY 11/22/17 Megestrol Acetate [Megace Es] 625 mg PO DAILY 11/22/17 Multivitamin [Multiple Vitamins] 1 each PO DAILY 11/22/17 Oxycodone HCl/Acetaminophen [Percocet 5-325 mg Tablet] 1 tab PO Q6H 11/22/17 Sitagliptin Phos/Metformin HCl [Janumet 50-500 mg Tablet] 1 each PO BID Tiotropium [place] [Spiriva] 2 inh IH DAILY 11/22/17 Tramadol HCl 50 mg PO DAILY 11/22/17
--- NOTE | 2017-11-24 16:33 | PN ---
Teaching Attending Note Name of Resident: Anurag Walters (Nephrology) ATTENDING PHYSICIAN STATEMENT I saw and evaluated the patient. I reviewed the resident's note and discussed the case with the resident. I agree with the resident's findings and plan as documented. Nephrology Pt is an 82 year old male with pmhx of liver cancer who was sent in for weekness. I was called to evaluate him for hyponatremia. He has not been eating much. pmhx liver cancer nkda ros [place] family hx denies Current Medications Generic Name Dose Route Start Last Admin Trade Name Freq PRN Reason Stop Dose Admin Albuterol Sulfate 1 amp 11/22/17 16:00 11/24/17 16:18 Ventolin 0.083% Nebulizer Soln - NEB 1 amp RQID JAYY Administration Atorvastatin Calcium 20 mg 11/22/17 22:00 11/23/17 21:20 Lipitor - PO 20 mg HS JAYY Administration Citalopram Hydrobromide 10 mg 11/23/17 08:00 11/24/17 07:53 Celexa - PO 10 mg DAILY@0800 JAYY Administration Docusate Sodium 300 mg 11/22/17 22:00 11/23/17 21:20 Colace - PO 300 mg HS JAYY Administration Heparin Sodium (Porcine) 5,000 unit 11/22/17 22:00 11/24/17 11:11 Heparin - SQ 5,000 unit BID JAYY Administration Magnesium Oxide 400 mg 11/23/17 22:00 11/24/17 11:11 Mag-Ox - PO 400 mg BID JAYY Administration Metoprolol Succinate 12.5 mg 11/23/17 08:00 11/24/17 07:52 Toprol Xl - PO 12.5 mg DAILY@0800 JAYY Administration Oxycodone HCl 5 mg 11/22/17 14:08 11/24/17 07:53 Roxicodone - PO 5 mg Q6H PRN Administration PAIN LEVEL 6-10 Pantoprazole Sodium 20 mg 11/23/17 08:00 11/24/17 07:53 Protonix - PO 20 mg DAILY@0800 JAYY Administration Tamsulosin HCl 0.4 mg 11/23/17 08:00 11/24/17 07:52 Flomax - PO 0.4 mg DAILY@0800 JAYY Administration Tiotropium [place] 1 puff 11/23/17 10:00 11/24/17 11:11 Spiriva - IH 1 puff DAILY JAYY Administration Last Vital Signs Temp Pulse Resp BP Pulse Ox 98.0 F 86 20 126/59 96 11/24/17 14:16 11/24/17 14:16 11/24/17 14:16 11/24/17 14:16 11/24/17 09:00 Laboratory Tests 11/22/17 11/23/17 11:41 06:50 WBC 4.4 Hgb 13.5 Urine Protein Negative Urine Blood Negative cardio s1s2 pulm clear GI soft ext neg edema Impression 1. hyponatremia improving 2. compression fracture 3. hyponatremia Plan - check urine sodium - check plasma and urine osm - check cortisol and tsh - family are discussed GOC with primary team - sodium is improving
--- NOTE | 2017-11-24 18:01 | PN ---
Progress Note (short form) - Note Progress Note: Patient seen and examined. Case discussed with patient's daughter. He has been having difficulty bearing weight since a recent fall. CT and MRI demonstrate a new burst fracture of L3 with loss of height and retropulsion of bone resulting in 50% canal compromise. There is no apparent Neurological deficit and the patient can lift his legs easily. No obvious posterior ligamentous injury on MRI STIR imaging. TLICS SCORE for this fracture is 2 (2 Morphology, 0 Neurological Deficit, 0 Posterior Ligamentous complex) and bracing would be the best initial management. TLSO brace ordered and placed (only medium brace available and small may fit better). Will obtain standing films in brace. If patient can bear weight and doesn't angulate, 3 months of bracing for comfort should allow for adequate healing. Given his multiple medical problems, surgical stabilization is not a first option. If patient cannot bear weight, or angulates on standing films, we will discuss potential management with a minimally invasive stabilization.
[2017-11-24] MEDS: DOCUSATE SODIUM 100 MG CAPSULE (FP) PO SCH (22:05)
[2017-11-24] MEDS: ATORVASTATIN CA 20 MG TABLET (FP) PO SCH (22:05)
[2017-11-25] MEDS: ALBUTEROL SO4 0.083% IH SOL 2.5 MG/3 ML VIAL.NEB. NEB SCH ×2 (07:25→11:35)
[2017-11-25] MEDS ORDERED: PT OWN MED DRAWER 7, Y5N ONE (08:24)
[2017-11-25] MEDS: metoPROLOL SUCCINATE 25 MG TAB.SR.24H (FP) PO SCH (08:52)
[2017-11-25] MEDS: TAMSULOSIN HCL 0.4 MG CAP.ER.24H (FP) PO SCH (08:52)
[2017-11-25] MEDS: CITALOPRAM HYDROBROMIDE 10 MG TABLET (FP) PO SCH (08:52)
[2017-11-25] MEDS: PANTOPRAZOLE 20 MG TABLET (FP) PO SCH (08:52)
[2017-11-25] MEDS: HEPARIN NA (PORCINE) 5,000 UNITS/ML 1ML VIAL SQ SCH (08:59)
[2017-11-25] MEDS: TIOTROPIUM BROMIDE 18 MCG CAPSULES IH SCH (08:59)
[2017-11-25] MEDS: MAGNESIUM OXIDE 400 MG TABLET (FP) PO SCH (08:59)
--- NOTE | 2017-11-25 09:58 | PN ---
Progress Note, Physician Chief Complaint: awake alert in bed plan to go home with home hospice - Current Medication List Current Medications: Active Medications Albuterol Sulfate (Ventolin 0.083% Nebulizer Soln -) 1 amp NEB RQID [facility] Last Admin: 11/25/17 07:25 Dose: 1 amp Atorvastatin Calcium (Lipitor -) 20 mg PO [facility] Last Admin: 11/24/17 22:05 Dose: 20 mg Citalopram Hydrobromide (Celexa -) 10 mg PO DAILY@0800 [facility] Last Admin: 11/25/17 08:52 Dose: 10 mg Docusate Sodium (Colace -) 300 mg PO [facility] Last Admin: 11/24/17 22:05 Dose: 300 mg Heparin Sodium (Porcine) (Heparin -) 5,000 unit SQ BID [facility] Last Admin: 11/25/17 08:59 Dose: 5,000 unit Magnesium Oxide (Mag-Ox -) 400 mg PO BID [facility] Last Admin: 11/25/17 08:59 Dose: 400 mg Metoprolol Succinate (Toprol Xl -) 12.5 mg PO DAILY@0800 [facility] Last Admin: 11/25/17 08:52 Dose: 12.5 mg Oxycodone HCl (Roxicodone -) 5 mg PO Q6H PRN PRN Reason: PAIN LEVEL 6-10 Last Admin: 11/24/17 07:53 Dose: 5 mg Pantoprazole Sodium (Protonix -) 20 mg PO DAILY@0800 [facility] Last Admin: 11/25/17 08:52 Dose: 20 mg Tamsulosin HCl (Flomax -) 0.4 mg PO DAILY@0800 [facility] Last Admin: 11/25/17 08:52 Dose: 0.4 mg Tiotropium [place] (Spiriva -) 1 puff IH DAILY [facility] Last Admin: 11/25/17 08:59 Dose: 1 puff - Objective Vital Signs: Vital Signs Temperature 98.9 F 11/25/17 06:00 Pulse Rate 63 11/25/17 06:00 Respiratory Rate 20 11/25/17 06:00 Blood Pressure 132/68 11/25/17 06:00 O2 Sat by Pulse Oximetry (%) 97 11/24/17 21:00 Constitutional: Yes: Calm Cardiovascular: Yes: Regular Rate and Rhythm, S1, S2 Respiratory: Yes: Diminished Gastrointestinal: Yes: Normal Bowel Sounds, Soft Edema: No Neurological: Yes: Alert Labs: CBC, BMP 11/23/17 06:50 11/24/17 07:25 INR, PTT INR 1.17 (0.82-1.09) H 11/23/17 06:50 Problem List - Problems (1) Hypomagnesemia Assessment/Plan: on magoxide Code(s): E83.42 - HYPOMAGNESEMIA (2) Weakness Assessment/Plan: MOLSt form done comfortcare/ home hospice do not want maurizio to go home today Code(s): R53.1 - WEAKNESS (3) Liver cancer Assessment/Plan: not a candidate for further treatment comfort care/home hospice Code(s): C22.9 - MALIG NEOPLASM OF LIVER, NOT SPECIFIED PRIMARY OR SEC (4) Diabetes Assessment/Plan: bgm hgba1c 5.8 slidiing scale Code(s): E11.9 - TYPE 2 DIABETES MELLITUS WITHOUT COMPLICATIONS Qualifiers: Diabetes mellitus type: type 2
[2017-11-25 10:27] VITALS: BP 133/70; PULSE 75; TEMP 98.4
--- NOTE | 2017-11-25 21:33 | PN ---
Progress Note (short form) - Note Progress Note: Patient able to sit up and bear weight when wearing TLSO brace. Upright films in brace do not show any angulation or further settling. Patient appeared to be more comfortable when brace was applied and is stable for discharge from Neurosurgery standpoint.
== END 2017-11-25 13:26 | disposition home or self-care (01) | DRG 552 ==
LOC: JER 10:50 → JERBED 13:22 → J5S 15:39
PROVIDERS: ADMIT Student in an Organized Health Care Education/Training Program; ATTEND Student in an Organized Health Care Education/Training Program
DX: S32.031A Stable burst fracture of third lumbar vertebra, initial encounter for closed fracture (principal); R64 Cachexia; Z68.1 Body mass index [BMI] 19.9 or less, adult; C22.0 Liver cell carcinoma; E87.1 Hypo-osmolality and hyponatremia; N17.9 Acute kidney failure, unspecified; J45.909 Unspecified asthma, uncomplicated; E11.9 Type 2 diabetes mellitus without complications; I25.2 Old myocardial infarction; D64.9 Anemia, unspecified; N40.0 Benign prostatic hyperplasia without lower urinary tract symptoms; E78.5 Hyperlipidemia, unspecified; B19.20 Unspecified viral hepatitis C without hepatic coma; E83.42 Hypomagnesemia; E86.0 Dehydration; M81.0 Age-related osteoporosis without current pathological fracture; Z87.891 Personal history of nicotine dependence; Z66 Do not resuscitate; R62.7 Adult failure to thrive
CPT/HCPCS: 36415; 71045-TC-FY; 72100-TC-FY; 72148-TC; 74177-TC; 80053; 80061; 81003; 82962; 83036; 83605; 83721; 83735; 83930; 83935; 84100; 85025; 85610; 86850; 86900; 86901; 87040; 87086; 93005; 93010; 94640; 97116-GP; 97161-GP; 99285-25; J1644; J7030